=== PATIENT | female | born 2000 | race Two or more races ===

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

== ENCOUNTER 2020-01-06 09:56 | Outpatient (CLI) | payer OTHER | END 2020-01-06 10:09 | disposition home or self-care (01) | LOC: SONOGRAMA 09:56 | PROVIDERS: ATTEND Obstetrics & Gynecology | DX: N94.89 Other specified conditions associated with female genital organs and menstrual cycle (principal); N95.8 Other specified menopausal and perimenopausal disorders ==

== ENCOUNTER 2020-05-08 13:40 | Outpatient (CLI) | payer OTHER | END 2020-05-08 13:52 | disposition home or self-care (01) | LOC: RAD 13:40 → MAMO-SONO 13:45 → RAD 13:52 | PROVIDERS: ATTEND General Practice | DX: M79.662 Pain in left lower leg (principal); E04.0 Nontoxic diffuse goiter ==

== ENCOUNTER 2020-08-01 13:42 | Outpatient (CLI) | payer OTHER | END 2020-08-01 14:00 | disposition home or self-care (01) | LOC: SONOGRAMA 13:42 | DX: N84.0 Polyp of corpus uteri (principal); N94.5 Secondary dysmenorrhea ==

== ENCOUNTER 2021-08-01 00:26 | Emergency (ER) | payer OTHER ==
[~2021-08-01] VITALS: Ht 170.2 cm; Wt 51.7 kg
[2021-08-01] MEDS ORDERED: OCELLA 3 MG-0.1 EACH (00:41)
== END 2021-08-01 09:50 | disposition home or self-care (01) ==
LOC: ER 00:26
DX: R10.13 Epigastric pain (principal); R11.10 Vomiting, unspecified

== ENCOUNTER → 2024-02-04 08:39 | Outpatient (CLI) | payer OTHER ==
[~2024-02-04 08:39] MED LIST: OCELLA 3 MG-0.1 EACH
== END | disposition home or self-care (01) ==
LOC: NUCLEAR 08:39
PROVIDERS: ATTEND Internal Medicine Hematology & Oncology
DX: D69.6 Thrombocytopenia, unspecified (principal); D73.1 Hypersplenism; K74.60 Unspecified cirrhosis of liver

== ENCOUNTER 2024-03-05 19:00 | Emergency (ER) | payer OTHER ==
[~2024-03-05] VITALS: Ht 172.7 cm; Wt 59.4 kg
[2024-03-05] MEDS ORDERED: GENTAMICIN SULFATE 0.15 MG/DR DROPS 5ML OP STA (20:14)
[2024-03-05] MEDS ORDERED: GENTAMICIN SULFATE 0.15 MG/DR DROPS 5ML OP ONE (20:18)
== END 2024-03-05 20:20 | disposition home or self-care (01) ==
LOC: ER 19:01
DX: S05.00XA Injury of conjunctiva and corneal abrasion without foreign body, unspecified eye, initial encounter (principal); X58.XXXA Exposure to other specified factors, initial encounter; Y93.89 Activity, other specified; Y92.89 Other specified places as the place of occurrence of the external cause; Y99.8 Other external cause status; Z88.8 Allergy status to other drugs, medicaments and biological substances

== ENCOUNTER 2024-10-29 21:29 | Emergency (ER) | payer OTHER ==
[~2024-10-29] VITALS: Ht 172.7 cm; Wt 62.6 kg
[2024-10-29] MEDS ORDERED: MIRENA1 EAC3 IY (21:43)
[2024-10-29 22:13] LABS: HEMATOCRIT 39.1 % (36.0-45.00); HEMOGLOBIN 13.2 g/dL (12.0-15.00); MEAN CELL VOLUME 82.6 fL (80.00-100.00); MEAN CORPUSCULAR HEMOGLOBIN 27.9 pg (27.00-32.0); MEAN CORPUSCULAR HGB CONC 33.7 g/dl (32.0-36.0); PLATELET COUNT 138 K/uL (150-450); RED BLOOD COUNT 4.73 M/uL (4.00-6.00)
[2024-10-29 22:46] LABS: INR 1.1; PROTHROMBIN TIME 11.9 SECONDS (9.0-11.5)
[2024-10-29 22:48] LABS: PARTIAL THROMBOPLASTIN TIME 29.3 SECONDS (22.0-34.0)
[2024-10-29 22:51] LABS: D DIMER < 0.19 MG/L
== END 2024-10-30 00:12 | disposition home or self-care (01) ==
LOC: ER 21:31
PROVIDERS: General Practice
DX: M79.604 Pain in right leg (principal); Z88.8 Allergy status to other drugs, medicaments and biological substances

== ENCOUNTER 2025-03-21 13:51 | Inpatient (IN) | payer OTHER ==
[~2025-03-21] VITALS: Ht 172.7 cm; Wt 61.2 kg
[~2025-03-21 13:51] MED LIST changes: +MIRENA1 EAC3 IY
[2025-03-21] MEDS ORDERED: METHYLPREDNISOLONE SOD SUCC 40 MG VIAL IV SCH (14:26)
[2025-03-21] MEDS ORDERED: METHYLPREDNISOLONE SOD SUCC 40 MG VIAL ONE (14:34)
[2025-03-21] MEDS ORDERED: WATER FOR INJ.,BACTERIOSTATIC 30 ML VIAL IJ ONE (14:35)
[2025-03-21 15:14] LABS: BASO % 0.1 % (0.1-1.2); EOS # 0.00 (0.04-0.54); EOS % 0.0 % (0.7-7.0); LYMPH # 0.87 (1.18-3.74); LYMPH % 7.0 % (19.3-53.1); MEAN PLATELET VOLUME 13.00 fl (9.4-12.4); MONO # 0.27 (0.24-0.82); MONO % 2.2 % (4.7-12.5); NEUT # 11.23 (1.56-6.13); NEUT % 90.2 % (34.0-71.1); RED CELL DISTRIBUTION WIDTH 12.4 % (11.6-14.4)
[2025-03-21 15:30] LABS: INR 1.09
[2025-03-21 15:58] LABS: ALT/SGPT 15.0 U/L (12-78); AST/SGOT 6.0 U/L (15-37); BILIRUBIN TOTAL 0.77 mg/dL (0.3-1.2); BUN CREA RATIO 14.0 (7.0-25.0); CREATININE SERUM 0.98 mg/dL (0.55-1.02); GFR 69.72; GLOBULINA 3.1 G/DL (2.4-3.5); GLUCOSE FASTING 106.0 mg/dL (65-100); OSMOLALITY SERUM 286.0 MOSM/KG (275-295)
[2025-03-21 16:52] LABS: URINE APPEARANCE Clear; URINE BILIRRUBIN Negative (NEGATIVE); URINE BLOOD Negative; URINE COLOR Yellow; URINE GLUCOSE Negative (NEGATIVE); URINE KETONE Trace (NEGATIVE); URINE LEUKOCYTE Negative; URINE NITRATE Negative; URINE PROTEIN Negative (NEGATIVE); URINE UROBILINOGEN 1.0 E.U./dl
[2025-03-21 16:55] LABS: URINE BACTERIA 182.3 uL (0.0-1933); URINE EPITHELIAL CELLS 10.1 uL (0.0-38.8); URINE RBC 13.6 uL (0.0-20.8); URINE WBC 26.9 uL (0.0-23.2)
[2025-03-21 16:56] LABS: URINE CAST 0.00 uL (0.0-1.40)
[2025-03-21] MEDS ORDERED: PANTOPRAZOLE SODIUM 40 MG/VIAL VIAL IV SCH (20:12)
[2025-03-21] MEDS ORDERED: ONDANSETRON HCL 4 MG in 0.9 % SODIUM CHLORIDE 50 ML IV PRN (20:15)
[2025-03-21] MEDS ORDERED: 0.9 % SODIUM CHLORIDE 1,000 ML IV SCH (20:15)
[2025-03-21] MEDS ORDERED: ACETAMINOPHEN 500 MG GEL..CAP PO PRN (20:15)
[2025-03-21 22:23] VITALS: BP 155/65; O2SAT 97
[2025-03-22 02:19] VITALS: BP 108/64; O2SAT 99
[2025-03-22 08:56] VITALS: BP 103/67
[2025-03-22 16:13] VITALS: BP 115/67; O2SAT 99
[2025-03-22 16:20] LABS: BASO % 0.1 % (0.1-1.2); EOS # 0.00 (0.04-0.54); EOS % 0.0 % (0.7-7.0); LYMPH # 0.99 (1.18-3.74); LYMPH % 4.5 % (19.3-53.1); MEAN PLATELET VOLUME 10.80 fl (9.4-12.4); MONO # 0.58 (0.24-0.82); MONO % 2.6 % (4.7-12.5); NEUT # 20.36 (1.56-6.13); NEUT % 92.2 % (34.0-71.1); RED CELL DISTRIBUTION WIDTH 12.5 % (11.6-14.4)
[2025-03-22] MEDS ORDERED: METHYLPREDNISOLONE SOD SUCC 125 MG VIAL IV SCH (17:00)
[2025-03-22] MEDS ORDERED: METHYLPREDNISOLONE SOD SUCC 40 MG VIAL IV SCH (21:00)
[2025-03-23 02:04] VITALS: BP 92/49; O2SAT 99
[2025-03-23 06:19] LABS: BASO % 0.1 % (0.1-1.2); EOS # 0.00 (0.04-0.54); EOS % 0.0 % (0.7-7.0); LYMPH # 1.40 (1.18-3.74); LYMPH % 6.5 % (19.3-53.1); MEAN PLATELET VOLUME 11.60 fl (9.4-12.4); MONO # 1.13 (0.24-0.82); MONO % 5.3 % (4.7-12.5); NEUT # 18.75 (1.56-6.13); NEUT % 87.3 % (34.0-71.1); RED CELL DISTRIBUTION WIDTH 12.5 % (11.6-14.4)
[2025-03-23] MEDS ORDERED: PANTOPRAZOLE SODIUM 40 MG TABLET.DR PO SCH (09:00)
[2025-03-23 09:40] VITALS: BP 118/73; O2SAT 97
[2025-03-23 16:45] VITALS: BP 109/65
== END 2025-03-23 20:34 | disposition home or self-care (01) | DRG 813 ==
LOC: ER 13:51 → MEDI 20:38
PROVIDERS: General Practice; Internal Medicine Hematology & Oncology; ADMIT Internal Medicine; ATTEND Internal Medicine
PROC: 30233R1 Transfusion of Nonautologous Platelets into Peripheral Vein, Percutaneous Approach (ICD-10-PCS; principal; 2025-03-21)
DX: D69.3 Immune thrombocytopenic purpura (principal); E16.1 Other hypoglycemia